=== PATIENT | female | born 1935 | race Caucasian/White ===

== ENCOUNTER → 2022-11-08 11:22 | Outpatient (BNVA) | payer MEDICARE, BC, SELFPAY | PROVIDERS: PCP Physician Assistant Medical; Referring Provider Physician Assistant Medical; Visit Provider Student in an Organized Health Care Education/Training Program | DX: M70.62 Trochanteric bursitis, left hip (principal); M47.816 Spondylosis without myelopathy or radiculopathy, lumbar region | CPT/HCPCS: 99203 ==

== ENCOUNTER 2022-11-22 01:15 | Outpatient (CLI) | payer MEDICARE, BC, SELFPAY ==
--- NOTE | 2022-11-22 07:00 | DI.MRI_ITS ---
Exam(s) MR LUMBAR SPINE WO EXAM: MR LUMBAR SPINE WO CLINICAL HISTORY: PAIN,LUMBAR RADICULOPATHY,M54.16. TECHNIQUE: Multiplanar multisequence MRI of the Lumbar spine was performed. COMPARISON: CR Lumbar Spine 2 or 3 Views from 07/09/2022 FINDINGS: Bones: The last intervertebral disc space is designated the L5/S1 level for the numbering purpose of this examination. The vertebral body heights are well maintained. Alignment is satisfactory. Heman giomas noted in the T12 and L1 vertebral bodies.. Cord: The conus tip ends at the T12 level. It is of normal size and signal intensity. T12-L1: No disc herniations or bulges are present. No central spinal canal or neural foraminal stenos is. L1-2: Loss of disc height eccentric toward the right with prominent endplate osteophytes, causing sev ere right neural foraminal narrowing. No significant central canal stenosis. L2-3: Asymmetric loss disc height, disc osteophytes at eccentric toward the left, causing severe left neural foraminal narrowing. No significant central canal stenosis. L3-4: Loss of disc height and prominent endplate osteophytes, eccentric toward the left. Facet degene rative changes and ligamentous hypertrophy. Mild central canal stenosis. Severe left neural foraminal narrowing. L4-5: Mild disc bulging. Facet degenerative changes causing moderate bilateral neural foraminal encro achment and mild spondylolisthesis. Severe central canal stenosis. L5-S1: Severe loss of disc height. Small endplate osteophytes. Degenerative signal changes in the end plates. severe right neural foraminal narrowing. No central spinal canal or neural foraminal stenosis . The visualized SI joints and sacrum are well maintained. Soft tissues: The paraspinal soft tissues are unremarkable. IMPRESSION: Severe central canal stenosis as well as bilateral neural foraminal narrowing at L4-5 secondary to co mbination of disc bulging and facet degenerative changes. Degenerative disc changes and neural foraminal narrowing at multiple levels as noted above.. DATA REPOSITORY:
== END 2022-11-22 01:35 ==
LOC: DI 01:15
PROVIDERS: PCP Physician Assistant Medical; Visit Provider Student in an Organized Health Care Education/Training Program
DX: M51.16 Intervertebral disc disorders with radiculopathy, lumbar region; M51.37 Other intervertebral disc degeneration, lumbosacral region; M47.27 Other spondylosis with radiculopathy, lumbosacral region; M43.16 Spondylolisthesis, lumbar region
CPT/HCPCS: 72148